=== PATIENT | female | born 1955 | race Caucasian/White ===

== ENCOUNTER 2021-01-03 15:48 | Outpatient (CLI) | payer MEDICARE, SELFPAY ==
--- NOTE | 2021-01-03 15:56 | XR_ITS ---
WS: [id number] DEXA (DUAL ENERGY X-RAY ABSORPTIOMETRY) Bone mineral density was performed using a [employer] machine. HISTORY: ASYMPTOMATIC MENOPAUSAL STATE COMPARISON: None available. Lumbar spine BMD (L1-L4): 1.074 g/cm2 T score: -0.9 Z score: -0.4 Total hip BMD: Right: 0.952. T score: -0.4 Z score: 0.0 10 year probability of a major osteoporotic fracture is 15%. XR/XR DEXA axial skeleton* [id number] IMPRESSION: NORMAL BONE MINERAL DENSITY based upon the WHO classification for females.
== END 2021-01-03 15:49 | disposition home or self-care (01) ==
LOC: RADWPI 15:55
PROVIDERS: PCP Family Medicine; Visit Provider Family Medicine
DX: Z78.0 Asymptomatic menopausal state (principal)
CPT/HCPCS: 77080

== ENCOUNTER 2023-03-12 12:46 | Outpatient (CLI) | payer MEDICARE, SELFPAY ==
--- NOTE | 2023-03-12 12:51 | XR_ITS ---
WS: [id number] DEXA (DUAL ENERGY X-RAY ABSORPTIOMETRY) Bone mineral density was performed using a [employer] machine. HISTORY: POSTMENOPAUSAL COMPARISON: 01/03/2021 Lumbar spine BMD (L1-L4): 1.101 g/cm2 T score: -0.7 Z score: -0.2 Total hip BMD: Right: 0.965 g/cm2. T score: -0.3 Z score: 0.2 Left forearm BMD: 0.821. T score: -0.6 Z score: 1.0 10 year probability of a major osteoporotic fracture is 9.5%. Compared to the prior study from 01/03/2021. Lumbar spine bone mineral density has decreased by 0.7%. LEFT hip bone mineral density has decreased by 1.2%. XR/XR DEXA axial skeleton* [id number] IMPRESSION: NORMAL BONE MINERAL DENSITY based upon the WHO classification for females. No s ignificant change in bone mineral density since the prior study.
== END 2023-03-12 12:47 | disposition home or self-care (01) ==
PROVIDERS: PCP Family Medicine; Visit Provider Family Medicine
DX: Z78.0 Asymptomatic menopausal state (principal)
CPT/HCPCS: 77080